=== PATIENT | female | born 1990 | race Caucasian/White ===

== ENCOUNTER → 2021-10-23 07:09 | Outpatient (CLI) | payer OTHER, SELFPAY ==
[2021-10-23 08:34] LABS: Add Manual Diff / Slide Review NO; Basophils Absolute Auto 0 /uL (0-100); Basophils Percent Auto 0.3 % (0-2); Eosinophils Absolute Auto 200 /uL (0-450); Eosinophils Percent Auto 1.6 % (2-4); Hematocrit 44.7 % (36-46); Hemoglobin 14.8 g/dL (12.0-16.0); Lymphocytes Absolute Auto 3100 /uL (1100-4500); Lymphocytes Percent Auto 32.3 % (25-40); Mean Corpuscular HGB Conc 33.2 % (30-36); Mean Corpuscular Hemoglobin 28.3 PG (26-34); Mean Corpuscular Volume 85.1 fL (80-100); Monocytes Absolute Auto 600 /uL (0-900); Monocytes Percent Auto 6.2 % (3-14); Neutrophils Absolute Auto 5700 /uL (1500-7000); Neutrophils Percent Auto 59.6 % (50-75); Platelet Count 255 X10^3/uL (150-400); Red Blood Cell Count 5.25 X10^6/uL (4.0-5.2); Red Cell Distribution Width 12.3 % (11.6-14.8); White Blood Cell Count 9.6 X10^3/uL (4.5-11.0)
[2021-10-23 08:35] LABS: Hemoglobin A1C% w Est Avg Glu 5.8 % (4.0-6.0)
[2021-10-23 08:53] LABS: Alanine Aminotransferase 26 IU/L (<35); Albumin 4.2 g/dL (3.5-5.0); Albumin Globulin Ratio 1.4 (1.0-2.8); Alkaline Phosphatase 76 U/L (38-126); Aspartate Aminotransferase 26 IU/L (14-36); BUN Creatinine Ratio 13.3 (6-22); Bilirubin Total 0.6 mg/dL (0.2-1.3); Blood Urea Nitrogen 10 mg/dL (7-17); Calcium 9.7 mg/dL (8.4-10.2); Carbon Dioxide 29 mmol/L (22-32); Chloride 105 mmol/L (98-107); Cholesterol 162 mg/dL (140-199); Estimated Glomerular Filt Rate > 60.0 mL/min (>60); Globulin 2.9 g/dL (1.7-4.1); Glucose 101 mg/dL (70-100); HDL Cholesterol 40 mg/dL (40-60); HEMOLYSIS < 15 (0-50); LDL Cholesterol Calculated 100 mg/dL (<100); Potassium 4.7 mmol/L (3.4-5.1); Sodium 142 mmol/L (137-145); Total Protein 7.1 g/dL (6.3-8.2); Triglycerides 112 mg/dL (35-150)
[2021-10-23 09:08] LABS: TSH w/ Reflex to FT4 3.85 uIU/mL (0.47-4.68)
[2021-10-23 09:09] LABS: Follicle Stimulating Hormone 4.58 mIU/mL; Luteinizing Hormone 4.68 mIU/mL; Prolactin 29.8 ng/mL (3.0-18.6)
[2021-10-23 10:42] LABS: Pregnancy Test Urine Negative (Negative)
[2021-10-27 12:36] LABS: Percent Free Testosterone 3.67 % (0.50-2.80); Testosterone Free 0.97 ng/dL (0.10-0.85); Testosterone Total 26.3 ng/dL (10.0-55.0)
== END ==
PROVIDERS: PCP Family Medicine; Referring Provider Family Medicine; Visit Provider Family Medicine
DX: N92.6 Irregular menstruation, unspecified (principal); Z68.36 Body mass index [BMI] 36.0-36.9, adult; L65.9 Nonscarring hair loss, unspecified
CPT/HCPCS: 36415; 80053; 80061; 81025; 82627; 83001; 83002; 83036; 84146; 84402; 84403; 84443; 85025

== ENCOUNTER → 2021-12-19 07:10 | Outpatient (CLI) | payer OTHER, SELFPAY ==
[2021-12-19 09:00] LABS: Hemoglobin A1C% w Est Avg Glu 5.7 % (4.0-6.0)
[2021-12-19 09:18] LABS: Prolactin 22.8 ng/mL (3.0-18.6)
== END ==
PROVIDERS: PCP Family Medicine; Referring Provider Obstetrics & Gynecology; Visit Provider Obstetrics & Gynecology
DX: N91.5 Oligomenorrhea, unspecified (principal)
CPT/HCPCS: 36415; 83036; 84146